=== PATIENT | female | born 1990 | race Caucasian/White ===

== ENCOUNTER 2016-09-22 22:21 | Emergency (ER) | payer MEDICARE, MEDICAID ==
[~2016-09-22] VITALS: Ht 172.7 cm; Wt 66.0 kg
[2016-09-22 22:24] VITALS: BP 140/95; PULSE 83; RESP 16; TEMP 98.2; O2SAT 98
[2016-09-23 00:17] LABS: AUTOMATED NEUTROPHIL # 8.1 TH/MM3 (1.8-7.7); BASOPHIL % 0.4 % (0.0-2.0); EOSINOPHIL % 0.4 % (0.0-4.0); HEMATOCRIT 44.4 % (35.0-46.0); HEMO FLAGS DIFF FINAL; LYMPH % 19.1 % (9.0-44.0); LYMPHOCYTE # 2.2 TH/MM3 (1.0-4.8); MEAN CELL VOLUME 92.2 FL (80.0-100.0); MEAN CORPUSCULAR HEMOGLOBIN 31.8 PG (27.0-34.0); MEAN CORPUSCULAR HGB CONC 34.5 % (32.0-36.0); MONO % 8.6 % (0.0-8.0); NEUT % 71.5 % (16.0-70.0); PLATELET COUNT 223 TH/MM3 (150-450); RED BLOOD COUNT 4.81 MIL/MM3 (4.00-5.30); RED CELL DISTRIBUTION WIDTH 12.4 % (11.6-17.2); WHITE BLOOD COUNT 11.3 TH/MM3 (4.0-11.0)
[2016-09-23 00:37] LABS: AMPHETAMINE, URINE NEG (NEG); BARBITURATES, URINE NEG (NEG); COCAINE, URINE NEG (NEG)
[2016-09-23 00:41] LABS: ALT (GPT) 24 U/L (10-53); ANION GAP 10 MEQ/L (5-15); AST (GOT) 14 U/L (15-37); BICARBONATE 22.3 MEQ/L (21.0-32.0); BLOOD UREA NITROGEN 9 MG/DL (7-18); CHLORIDE 104 MEQ/L (98-107); GLOMERULAR FILTRATION RATE 98 ML/MIN (>89); POTASSIUM 3.6 MEQ/L (3.5-5.1); SODIUM (NA) 136 MEQ/L (136-145)
[2016-09-23 00:43] LABS: ALKALINE PHOSPHATASE 78 U/L (45-117); TOTAL BILIRUBIN ADULT 0.9 MG/DL (0.2-1.0)
[2016-09-23 00:50] LABS: BACTERIA, URINE RARE /hpf; BLOOD, URINE TRACE (NEG); COMMENT (UR) CULT NOT INDICATED; CULTURE IF INDICATED CULT NOT INDICATED; GLUCOSE,URINE NEG (NEG); KETONE, URINE 150 mg/dL (NEG); MUCUS URINE MANY /lpf (OCC); NITRITE,URINE NEG (NEG); RENAL EPITHELIAL CELLS <1 /hpf; SQUAMOUS EPITHELIAL CELL URINE 41 /hpf (0-5); URINE COLOR YELLOW (YELLW/STRAW)
--- NOTE | 2016-09-23 00:52 | PD ---
HPI Chief Complaint: Cold / Flu Symptoms Time Seen by Provider: 23:58 Travel History International Travel<30 days: No Contact w/Intl Traveler<30days: No Traveled to known affect area: No History of Present Illness HPI This is a 25-year-old female with a history of depression and cognitive disorder , who presents with her boyfriend with complaints of abdominal discomfort and depression. The patient reports that she's got a "funny feeling in her belly". She denies any true pain but states it does not feel normal. She also reports feeling depressed. She denies any suicidal or homicidal ideation. The patient denies any vomiting. She does report that her appetite is not what it normally is and when she sees food on television, she gets nauseous. Boyfriend is at the bedside states that she's been more depressed than normal. He states that they've been together for 4-1/2 years and she seems to have declined over the last couple months. PFSH Past Medical History Cardiovascular Problems: Yes (LOW BP) Developmental Delay: Yes Tetanus Vaccination: Unknown Influenza Vaccination: No ?: Unknown LMP: 08/08/16 : 1 Para: 0 : 1 Past Surgical History Surgical History: No Previous Surgery Social History Alcohol Use: Yes (RARE) Tobacco Use: Yes ( 5 CIG PER DAY) Substance Use: No Allergies-Medications (Allergen,Severity, Reaction): Coded Allergies: No Known Allergies (Unverified , 09/22/16) Reported Meds & Prescriptions Reported Meds & Active Scripts Active Macrobid (Nitrofurantoin Monoh/Nitrofur Macro) 100 Mg Cap 100 Mg PO BID Review of Systems Except as stated in HPI: all other systems reviewed are Neg General / Constitutional: No: Fever HENT: No: Headaches, Lightheadedness Cardiovascular: No: Chest Pain or Discomfort, Palpitations Respiratory: No: Cough, Shortness of Breath Gastrointestinal: Positive: Nausea, No: Vomiting, Diarrhea, Abdominal Pain Genitourinary: No: Frequency, Dysuria Musculoskeletal: No: Weakness Neurologic: No: Weakness, Syncope Psychiatric: Positive: Depression, No: Suicidal Ideations, Homicidal Ideation Physical Exam Narrative GENERAL: Well-nourished, well-developed patient. SKIN: Warm and dry. HEAD: Normocephalic/atraumatic. EYES: No scleral icterus. No injection or drainage. NECK: Supple, trachea midline. CARDIOVASCULAR: Regular rate and rhythm without murmurs, gallops, or rubs. RESPIRATORY: Breath sounds equal bilaterally. No accessory muscle use. GASTROINTESTINAL: Abdomen soft, non-tender, nondistended. She points to her left midline where she states it feels "funny". MUSCULOSKELETAL: No cyanosis, or edema. BACK: Nontender without obvious deformity. No CVA tenderness. NEUROLOGICAL: Awake and alert. Cranial nerves II through XII intact. Motor within normal limits. Five out of 5 muscle strength in all muscle groups. Normal speech. Data Data Last Documented VS Vital Signs Date Time Temp Pulse Resp B/P Pulse Ox O2 Delivery O2 Flow Rate FiO2 09/22/16 22:24 98.2 83 16 140/95 98 Room Air Orders Complete Blood Count With Diff (09/22/16 23:58) Comprehensive Metabolic Panel (09/22/16 23:58) Urinalysis - C+S If Indicated (09/22/16 23:58) Ed Urine Pregnancytest Poc (09/22/16 23:58) Psych Screen (09/22/16 23:58) Drug Screen, Random Urine (09/22/16 23:58) Beta Hcg (Quant/Titer) (09/23/16 00:20) Us Pelvis (Ques Pr/Ect)W Trans (09/23/16 00:34) Labs Laboratory Tests Test 09/23/16 09/23/16 00:10 00:15 White Blood Count 11.3 TH/MM3 Red Blood Count 4.81 MIL/MM3 Hemoglobin 15.3 GM/DL Hematocrit 44.4 % Mean Corpuscular Volume 92.2 FL Mean Corpuscular Hemoglobin 31.8 PG Mean Corpuscular Hemoglobin 34.5 % Concent Red Cell Distribution Width 12.4 % Platelet Count 223 TH/MM3 Mean Platelet Volume 8.2 FL Neutrophils (%) (Auto) 71.5 % Lymphocytes (%) (Auto) 19.1 % Monocytes (%) (Auto) 8.6 % Eosinophils (%) (Auto) 0.4 % Basophils (%) (Auto) 0.4 % Neutrophils # (Auto) 8.1 TH/MM3 Lymphocytes # (Auto) 2.2 TH/MM3 Monocytes # (Auto) 1.0 TH/MM3 Eosinophils # (Auto) 0.0 TH/MM3 Basophils # (Auto) 0.0 TH/MM3 CBC Comment DIFF FINAL Differential Comment Sodium Level 136 MEQ/L Potassium Level 3.6 MEQ/L Chloride Level 104 MEQ/L Carbon Dioxide Level 22.3 MEQ/L Anion Gap 10 MEQ/L Blood Urea Nitrogen 9 MG/DL Creatinine 0.72 MG/DL Estimat Glomerular Filtration 98 ML/MIN Rate Random Glucose 77 MG/DL Calcium Level 9.3 MG/DL Total Bilirubin 0.9 MG/DL Aspartate Amino Transf 14 U/L (AST/SGOT) Alanine Aminotransferase 24 U/L (ALT/SGPT) Alkaline Phosphatase 78 U/L Total Protein 8.8 GM/DL Albumin 4.7 GM/DL Human Chorionic Gonadotropin, 99290 MIU/ML Quant Urine Color YELLOW Urine Turbidity CLOUDY Urine pH 6.0 Urine Specific [place] 1.030 Urine Protein 30 mg/dL Urine Glucose (UA) NEG mg/dL Urine Ketones 150 mg/dL Urine Occult Blood TRACE Urine Nitrite NEG Urine Bilirubin NEG Urine Urobilinogen 2.0 MG/DL Urine Leukocyte Esterase MOD Urine RBC 25 /hpf Urine WBC 8 /hpf Urine Squamous Epithelial 41 /hpf Cells Urine Renal Epithelial Cells <1 /hpf Urine Bacteria RARE /hpf Urine Mucus MANY /lpf Microscopic Urinalysis Comment CULT NOT INDICATED Urine Opiates Screen NEG Urine Barbiturates Screen NEG Urine Amphetamines Screen NEG Urine Benzodiazepines Screen NEG Urine Cocaine Screen NEG Urine Cannabinoids Screen POS MDM Medical Decision Making Medical Screen Exam Complete: Yes Emergency Medical Condition: Yes Differential Diagnosis Ectopic versus UTI versus acute abdominal infection Narrative Course A 5-year-old female with history of cognitive disorder, depression, presents today with complaints of depression and generalized abdominal discomfort. The patient has a very soft abdomen on exam. She reports it's painful just left of midline in her lower pelvis/lower abdominal area. Bedside urine test was positive. Beta hCG was measured at 25,000. Bedside ultrasound showed a 6 week intrauterine . Urinalysis also showed a UTI. She's had the psych screener come in and give her information on outpatient counseling for her depression. The patient is not suicidal or homicidal. She is Exie happy now that she's found out she is . She'll be given a prescription for Macrobid for her urinary tract infection she's also been instructed to take a vitamin. Her conditions she follow up with a [employer] physician of her choice. Diagnosis Primary Impression: 6 weeks gestation of Additional Impressions: Cystitis Depression Additional Instructions: Purchase [id number] vitamins. Follow up with OB doctor of your choice. Med/Other Pt SpecificInfo: Prescription(s) given Scripts Nitrofurantoin Monohydrate Macrocrystals (Macrobid)100 Mg Vul689 Mg PO BID #14 CAP Ref 0 Prov:Seymour John MD 09/23/16 Disposition: 01 DISCHARGE HOME Condition: Stable Seymour John MD Sep 23, 2016 00:52
[2016-09-23 01:16] LABS: BETA HCG QUANT 23529 MIU/ML (0-5)
--- NOTE | 2016-09-23 01:38 | RADRPT ---
EXAM DATE/TIME: 09/23/2016 00:50 [facility] COMPARISON: No previous studies available for comparison. INDICATIONS : Pain. LAB(S): Beta-hC MEDICAL HISTORY : . Hypotension. SURGICAL HISTORY : None. ENCOUNTER: Initial ACUITY: 1 day PAIN SCORE: 0/10 LOCATION: Bilateral pelvis MEASUREMENTS: UTERUS: 7.0 x 4.5 x 5.5 cm ENDOMETRIAL STRIPE: 12 mm RIGHT OVARY: 2.3 x 1.2 x 2.0 cm LEFT OVARY: 2.2 x 1.3 x 2.7 cm FINDINGS: Ultrasound of the pelvis via transabdominal transvaginal approach demonstrates a single viable intrau terine with a crown-rump length of 4 mm Cardiac activity is identified at 104 beats per min duncan. No free fluid or adnexal masses are identified. Examination of the right ovary demonstrates no abnormality. Examination of the left ovary demonstrates a complex cystic area in measuring 2.6 cm which may reflec t a corpus luteum cyst. CONCLUSION: 1. Intrauterine at 6 weeks one day Jose Luis Hurd MD on September 23, 2016 at 1:35 Board Certified Radiologist. This report was verified electronically.
[2016-09-23] MEDS ORDERED: MACR100C2 PO (02:59)
== END 2016-09-23 03:58 | disposition home or self-care (01) ==
LOC: NEPE 22:21
DX: O23.11 Infections of bladder in pregnancy, first trimester (principal); O99.331 Smoking (tobacco) complicating pregnancy, first trimester; F32.9 Major depressive disorder, single episode, unspecified; Z3A.01 Less than 8 weeks gestation of pregnancy
CPT/HCPCS: 76700; 76817; 80053; 80307; 81001; 84702; 84703; 85025